=== PATIENT | female | born 1950 | race Caucasian/White ===

== ENCOUNTER → 2019-08-07 08:27 | Outpatient (BNVA) | payer MEDICARE, MEDICAID, SELFPAY | PROVIDERS: Family Provider Family Medicine; Referring Provider Family Medicine; Visit Provider Podiatrist Foot & Ankle Surgery | DX: M21.962 Unspecified acquired deformity of left lower leg (principal) | CPT/HCPCS: 73630 ==

== ENCOUNTER 2020-03-15 11:31 | Outpatient (CLI) | payer MEDICARE, MEDICAID, SELFPAY ==
--- NOTE | 2020-03-15 11:37 | MM_ITS ---
WS: [id number] BILATERAL SCREENING DIGITAL MAMMOGRAM WITH CAD HISTORY: SCREENING COMPARISON: 01/28/2019 and 12/31/2017 Bilateral CC and MLO views submitted. Computer aided detection analyzed. Breast composition: There are scattered areas of fibroglandular density. No suspicious masses, microc alcifications or architectural distortion. Bilateral vascular calcifications within each breast. MM/[id number] IMPRESSION: BI-RADS: 2-Benign FOLLOW UP: 1 Year Follow-up
== END 2020-03-15 11:32 | disposition home or self-care (01) ==
LOC: RADSHAW 11:34
PROVIDERS: Family Provider Family Medicine; PCP Family Medicine; Visit Provider Family Medicine
DX: Z12.31 Encounter for screening mammogram for malignant neoplasm of breast (principal)
CPT/HCPCS: 77067

== ENCOUNTER 2021-08-22 11:12 | Outpatient (CLI) | payer MEDICARE, MEDICAID, SELFPAY ==
--- NOTE | 2021-08-22 11:22 | MM_ITS ---
WS: [id number] BILATERAL SCREENING DIGITAL BREAST TOMOSYNTHESIS MAMMOGRAM WITH CAD HISTORY: SCREENING COMPARISON: 03/15/2020, 01/28/2019 and 12/08/2016 Bilateral CC and MLO views with tomosynthesis and synthetic mammography submitted. Computer aided det ection analyzed. Breast composition: There are scattered areas of fibroglandular density. No suspicious masses, microc alcifications or architectural distortion. Stable nodule LEFT breast near 3:00. MM/[id number] IMPRESSION: BI-RADS: 2-Benign FOLLOW UP: 1 Year Follow-up
== END 2021-08-22 11:13 | disposition home or self-care (01) ==
LOC: RAD 11:18
PROVIDERS: Family Provider Family Medicine; PCP Family Medicine; Visit Provider Family Medicine
DX: Z12.31 Encounter for screening mammogram for malignant neoplasm of breast (principal)
CPT/HCPCS: 77063; 77067

== ENCOUNTER 2022-02-01 10:01 | Emergency (ER) | payer MEDICARE, MEDICAID, SELFPAY ==
[2022-02-01 10:10] VITALS: BP 164/87; PULSE 62; RESP 16; TEMP 36.9; O2SAT 98; BMI 29.0
[2022-02-01 10:30] VITALS: BP 158/80; PULSE 59; RESP 16; TEMP 36.7; O2SAT 94
--- NOTE | 2022-02-01 10:36 | ED_ITS ---
Documented by User: LAURO Del Toro 02/01/22 15:08 HPI - Recheck/Abnormal Lab/Rx General: Chief Complaint: Recheck/Abnormal Lab/Rx Stated Complaint: abnormal labs yesterday Time Seen by Provider: 02/01/22 10:21 History of Present Illness: Patient is a 71-year-old female comes to the ED to have labs rechecked. Patient received a call from her primary care doctor today and was told that her platelets were low and her creatinine was elevated. PCP told her to come to the ED to get her labs rechecked and for her to be evaluated. Patient says she is not having any symptoms currently and feels normal. Denies any current bleeding, fevers, chills, chest pain, shortness of breath, abdominal pain, nausea/vomiting, dizziness, bladder or bowel symptoms. Denies any history of any platelet disorder she has a past medical history of diabetes, hypertension, hypothyroidism and osteoporosis. History of some chronic kidney disease. Patient was just started on Invokana within the past year. The patient showed me her labs from 2 days ago and the results showed platelet count of 21,000 and a creatinine level of 1.4. Review of Systems Const: Denies: fever(s), chills or fatigue Eyes: Denies: change in vision or eye discomfort ENMT: Denies: throat pain, odynophagia, nasal discharge or nasal congestion Card: Denies: chest pain, palpitations, edema, swelling of feet/ankles, dyspnea on exertion or orthopnea Resp: Denies: dyspnea, productive cough or non-productive cough GI: Denies: abdominal pain, nausea, vomiting, diarrhea, constipation or hematochezia : Denies: flank pain, dysuria or hematuria Musc: Denies: neck pain, back pain or extremity swelling Skin/Breast: Denies: rash or new lesions Neuro: Denies: headache(s), numbness in extremities or weakness in extremities PFSH ED PFSH: Medical History (Updated 02/09/22 @ 00:00 by ) Chronic kidney disease History of stroke (11/2020) Affecting left eye Hypertension Hypothyroidism Systemic lupus Type 2 diabetes mellitus Surgical History (Updated 02/08/22 @ 12:44 by Artie Mars MD) History of cholecystectomy Status post ORIF of fracture of ankle Right ankle Family History (Updated 02/08/22 @ 12:47 by Artie Mars MD) Brother Diabetes Brother Cancer Social History Smoking and tobacco status: never smoked Household members: none Current occupational status: retired Physical Exam Const: COMMON NORMALS: no acute distress, patient oriented x3 and alert GENERAL APPEARANCE: cooperative and comfortable HENMT: COMMON NORMALS: normocephalic HEAD & SCALP: normocephalic MOUTH: Normal oral and palatal mucosa present THROAT: posterior oropharynx normal and uvula midline Neck/C-Spine: COMMON NORMALS: supple GENERAL: Yes normal visual inspection Resp: COMMON NORMALS: normal respiratory effort, No retractions, No use of accessory muscles and clear to auscultation bilaterally AUSCULTATION: clear to auscultation bilaterally Cardio: COMMON NORMALS: regular rate, regular rhythm, S1 normal heart sound present, S2 normal heart sound present, No gallops present (Cardio), No clicks present (Cardio), No murmurs present (Cardio) and Peripheral pulses 2+ throughout RATE: regular rate RHYTHM: regular rhythm HEART SOUNDS: S1 normal heart sound present and S2 normal heart sound present PERIPHERAL PULSES: Peripheral pulses 2+ throughout GI: COMMON NORMALS: Normal to inspection, nondistended, normoactive bowel sounds present, Soft to palpation, non-tender and no masses PALPATION: Yes Soft to palpation : COMMON NORMALS: Yes no CVA tenderness BLADDER/KIDNEY EXAM: Yes no CVA tenderness Back/Pelvis: COMMON NORMALS: no CVA tenderness Extremity: COMMON NORMALS: normal to inspection Neuro: COMMON NORMALS: patient oriented x3 SENSORIUM/ORIENTATION: Yes alert GAIT: Yes Normal gait present Skin: GENERAL SKIN EXAM: dry skin Course Vital Signs: Vital signs: Vital Signs Temperature 98.0 F 02/01/22 10:30 Pulse Rate 53 L 02/01/22 12:33 Respiratory Rate 14 02/01/22 12:33 Blood Pressure 166/82 02/01/22 12:33 Pulse Oximetry 96 02/01/22 12:33 Oxygen Delivery Me thod 02/01/22 12:33 MDM - Recheck/Abnormal Lab/Rx Medical Decision Making Patient is a 71-year-old female comes to the ED to have labs rechecked. Patient received a call from her primary care doctor today and was told that her platelets were low and her creatinine was elevated. PCP told her to come to the ED to get her labs rechecked and for her to be evaluated. Patient says she is not having any symptoms currently and feels normal. Denies any current bleeding, fevers, chills, chest pain, shortness of breath, abdominal pain, nausea/vomiting, dizziness, bladder or bowel symptoms. Endorses having a history of chronic kidney disease. patient showed me her labs from 2 days ago and her creatinine was 1.4. Platelets were 21,000. Vitals are stable. Patient appears nontoxic and in no acute distress or pain. Rest of exam is benign. Today her platelet count is 31,000 and creatinine is 1.6. She was given half a liter of IV fluids. She was stable for discharge home diagnosed with thrombocytopenia and elevated serum creatinine. I placed an order with case management for patient be referred to business operations consultant for follow-up on thro mbocytopenia. Strict return to ED precautions given. Follow-up with PCP within the next 2 to 3 days to have labs rechecked. Return ED precautions given. Patient understood and agreed with plan. I reviewed case with Dr. Andrade he agreed with plan. Medical Records The patient showed me her labs from 2 days ago and the results showed platelet count of 21,000 and a creatinine level of 1.4. Lab Data I reviewed the patient's lab results. 02/01/22 10:30 02/01/22 10:30 Laboratory Results WBC 5.2 10^3/uL (4.0-10.0) 02/01/22 10:30 RBC 4.72 10^6/uL (4.1-5.3) 02/01/22 10:30 Hgb 13.3 g/dL (11.5-15.3) 02/01/22 10:30 Hct 41.3 % (37.0-47.0) 02/01/22 10:30 MCV 87.5 fl (81-99) 02/01/22 10:30 MCH 28.2 pg (28.0-34.0) 02/01/22 10:30 MCHC 32.2 g/dL (30.0-36.0) 02/01/22 10:30 RDW 13.5 % (12.1-15.1) 02/01/22 10:30 Plt Count 31 10^3/cmm (130-400) L 02/01/22 10:30 MPV 11.8 fL (7.4-10.4) H 02/01/22 10:30 Neut % (Auto) 54.0 % 02/01/22 10:30 Lymph % (Auto) 35.8 % 02/01/22 10:30 Darke % (Auto) 8.1 % 02/01/22 10:30 Eos % (Auto) 1.7 % 02/01/22 10:30 Baso % (Auto) 0.2 % 02/01/22 10:30 Neut # (Auto) 2.79 10^3/uL (1.8-7.7) 02/01/22 10:30 Lymph # (Auto) 1.9 10^3/uL (0.8-4.8) 02/01/22 10:30 Darke # (Auto) 0.4 10^3/uL (0.2-0.9) 02/01/22 10:30 Eos # (Auto) 0.1 10^3/uL (0.0-0.8) 02/01/22 10:30 Baso # (Auto) 0.0 10^3/uL (0.0-0.1) 02/01/22 10:30 Nucleated RBC % (auto) 0 % 02/01/22 10:30 Nucleated RBCs # 0.0 /100WBC 02/01/22 10:30 PT 13.60 SECONDS (12.1-14.9) 02/01/22 10:30 INR 1.01 (0.8-1.2) 02/01/22 10:30 APTT 33.0 SECONDS (23.9-36.7) 02/01/22 10:30 Fibrinogen 363 mg/dL (174-498) 02/01/22 10:30 Sodium 139 mmol/L (136-145) 02/01/22 10:30 Potassium 4.3 mmol/L (3.5-5.1) 02/01/22 10:30 Chloride 104 mmol/L (98-107) 02/01/22 10:30 Carbon Dioxide 23 mmol/L (22-29) 02/01/22 10:30 Anion Gap 16.3 (5-19) 02/01/22 10:30 BUN 36 mg/dL (8-23) H 02/01/22 10:30 Creatinine 1.6 mg/dL (0.5-0.9) H 02/01/22 10:30 GFR Calculation Not Reportable 02/01/22 10:30 Glucose 300 mg/dL (65-115) H 02/01/22 10:30 Calculated Osmolality 308 mOsm/kg (285-295) H 02/01/22 10:30 Calcium 8.6 mg/dL (8.5-10.5) 02/01/22 10:30 Total Bilirubin 0.2 mg/dL (0.15-1.2) 02/01/22 10:30 AST 17 U/L (0-32) 02/01/22 10:30 ALT 11 U/L (0-33) 02/01/22 10:30 Alkaline Phosphatase 104 U/L (35-105) 02/01/22 10:30 Total Protein 7.1 g/dL (6.6-8.7) 02/01/22 10:30 Albumin 3.7 g/dL (3.5-5.2) 02/01/22 10:30 Globulin 3.4 g/dL (1.3-4.6) 02/01/22 10:30 Urine Color Yellow (Yellow) 02/01/22 10:10 Urine Appearance Clear (CLEAR) 02/01/22 10:10 Urine pH 5 (5-7) 02/01/22 10:10 Ur Specific [facility] 1.015 (1.005-1.030) 02/01/22 10:10 Urine Protein Trace (Negative) 02/01/22 10:10 Urine Glucose (UA) 4+ (Normal) H 02/01/22 10:10 Urine Ketones Negative (Negative) 02/01/22 10:10 Urine Blood Neg (Negative) 02/01/22 10:10 Urine Nitrate Negative (Negative) 02/01/22 10:10 Urine Bilirubin Neg (Negative) 02/01/22 10:10 Urine Urobilinogen Neg mg/dL (Negative) 02/01/22 10:10 Ur Leukocyte Esterase Negative (Negative) 02/01/22 10:10 Urine RBC Rare /hpf (0-2) 02/01/22 10:10 Urine WBC None /hpf (0-5) 02/01/22 10:10 Ur Squamous Epith Cells 0-4 /hpf (0-5) H 02/01/22 10:10 Amorphous Sediment Not Reportable 02/01/22 10:10 Urine Bacteria None /hpf (NONE) 02/01/22 10:10 Discharge Plan Discharge Patient Disposition: Home Clinical Impression: Thrombocytopenia, Elevated serum creatinine Condition: Stable Prescriptions: No Action (DME) Diabetic Shoes See Rx Instructions .ROUTE .MEDSUPPLY Qty: 1 0RF Rx Instructions: As directed losartan 50 mg tablet 50 mg PO DAILY clonidine HCl 0.1 mg tablet 0.1 mg PO DAILY levothyroxine 75 mcg tablet 75 mcg PO DAILY Claritin 10 mg Tablet 10 mg PO QPM PRN (Reason: Allergy Symptoms) Invokana 100 mg tablet 100 mg PO DAILY Discharge Orders: Discharge ED (Routine); Ordered 02/01/22 Ordered By: Jelani Iqbal Referrals: Aspen Hopkins MD [Primary Care Provider] - Discharge Diet: Regular Discharge Activity: Increase activity as tolerated Patient Instructions: Thrombocytopenia (ED) Activity Restrictions/Additional Instructions: Follow-up with medical provider as directed in the next 2 to 3 days to be reevaluated and to have platelet levels checked again and to also check creatinine level. Case management should be contacting you in the next several days to set up an appointment with business operations consultant to evaluate your low platelet count. Contact your kidney doctor to discuss your low platelet count and the recently started medication of Invokana. Continue taking all home medications as previously prescribed. Return to the ER or your medical provider if condition worsens or if you have any uncontrolled bleeding. Please read and understand discharge instructions. Thank you for choosing [facility] for your healthcare needs today. Please realize this is an emergency room and that we are providing you with a medical screening exam and this may not be complete and all inclusive of all the testing and or work up that you may need to determine your ailment or severity of your illness. It is very important that you follow up as instructed or that you return to the Emergency Department should you have concerns or if your cond ition changes or worsens in any way. Coding Level of Care Code ED Physician Practice Consultant for Chg Fwd Exam Comprehensive Documented by User: Narciso Andrade MD 02/15/22 00:59 HPI - Recheck/Abnormal Lab/Rx General: Chief Complaint: Recheck/Abnormal Lab/Rx Stated Complaint: abnormal labs yesterday Time Seen by Provider: 02/01/22 10:21 PFSH ED PFSH: Medical History (Updated 02/09/22 @ 00:00 by ) Chronic kidney disease History of stroke (11/2020) Affecting left eye Hypertension Hypothyroidism Systemic lupus Type 2 diabetes mellitus Surgical History (Updated 02/08/22 @ 12:44 by Artei Mars MD) History of cholecystectomy Status post ORIF of fracture of ankle Right ankle Family History (Updated 02/08/22 @ 12:47 by Artie Mars MD) Brother Diabetes Brother Cancer Social History Smoking and tobacco status: never smoked Household members: none Current occupational status: retired Course Vital Signs: Vital signs: Vital Signs Temperature 98.0 F 02/01/22 10:30 Pulse Rate 53 L 02/01/22 12:33 Respiratory Rate 14 02/01/22 12:33 Blood Pressure 166/82 02/01/22 12:33 Pulse Oximetry 96 02/01/22 12:33 Oxygen Delivery Me thod 02/01/22 12:33 MDM - Recheck/Abnormal Lab/Rx Medical Decision Making Patient is a 71-year-old female comes to the ED to have labs rechecked. Patient received a call from her primary care doctor today and was told that her platelets were low and her creatinine was elevated. PCP told her to come to the ED to get her labs rechecked and for her to be evaluated. Patient says she is not having any symptoms currently and feels normal. Denies any current bleeding, fevers, chills, chest pain, shortness of breath, abdominal pain, nausea/vomiting, dizziness, bladder or bowel symptoms. Endorses having a history of chronic kidney disease. patient showed me her labs from 2 days ago and her creatinine was 1.4. Platelets were 21,000. Vitals are stable. Patient appears nontoxic and in no acute distress or pain. Rest of exam is benign. Today her platelet count is 31,000 and creatinine is 1.6. She was given half a liter of IV fluids. She was stable for discharge home diagnosed with thro mbocytopenia and elevated serum creatinine. I placed an order with case management for patient be referred to business operations consultant for follow-up on thrombocytopenia. Strict return to ED precautions given. Follow-up with PCP within the next 2 to 3 days to have labs rechecked. Return ED precautions given. Patient understood and agreed with plan. I reviewed case with Dr. Andrade he agreed with plan. I discussed this case with LAURO Del Toro. I have reviewed documentation. Narciso Andrade MD Emergency Medicine Lab Data 02/01/22 10:30 02/01/22 10:30 Laboratory Results WBC 5.2 10^3/uL (4.0-10.0) 02/01/22 10:30 RBC 4.72 10^6/uL (4.1-5.3) 02/01/22 10:30 Hgb 13.3 g/dL (11.5-15.3) 02/01/22 10:30 Hct 41.3 % (37.0-47.0) 02/01/22 10:30 MCV 87.5 fl (81-99) 02/01/22 10:30 MCH 28.2 pg (28.0-34.0) 02/01/22 10:30 MCHC 32.2 g/dL (30.0-36.0) 02/01/22 10:30 RDW 13.5 % (12.1-15.1) 02/01/22 10:30 Plt Count 31 10^3/cmm (130-400) L 02/01/22 10:30 MPV 11.8 fL (7.4-10.4) H 02/01/22 10:30 Neut % (Auto) 54.0 % 02/01/22 10:30 Lymph % (Auto) 35.8 % 02/01/22 10:30 Darke % (Auto) 8.1 % 02/01/22 10:30 Eos % (Auto) 1.7 % 02/01/22 10:30 Baso % (Auto) 0.2 % 02/01/22 10:30 Neut # (Auto) 2.79 10^3/uL (1.8-7.7) 02/01/22 10:30 Lymph # (Auto) 1.9 10^3/uL (0.8-4.8) 02/01/22 10:30 Darke # (Auto) 0.4 10^3/uL (0.2-0.9) 02/01/22 10:30 Eos # (Auto) 0.1 10^3/uL (0.0-0.8) 02/01/22 10:30 Baso # (Auto) 0.0 10^3/uL (0.0-0.1) 02/01/22 10:30 Nucleated RBC % (auto) 0 % 02/01/22 10:30 Nucleated RBCs # 0.0 /100WBC 02/01/22 10:30 PT 13.60 SECONDS (12.1-14.9) 02/01/22 10:30 INR 1.01 (0.8-1.2) 02/01/22 10:30 APTT 33.0 SECONDS (23.9-36.7) 02/01/22 10:30 Fibrinogen 363 mg/dL (174-498) 02/01/22 10:30 Sodium 139 mmol/L (136-145) 02/01/22 10:30 Potassium 4.3 mmol/L (3.5-5.1) 02/01/22 10:30 Chloride 104 mmol/L (98-107) 02/01/22 10:30 Carbon Dioxide 23 mmol/L (22-29) 02/01/22 10:30 Anion Gap 16.3 (5-19) 02/01/22 10:30 BUN 36 mg/dL (8-23) H 02/01/22 10:30 Creatinine 1.6 mg/dL (0.5-0.9) H 02/01/22 10:30 GFR Calculation Not Reportable 02/01/22 10:30 Glucose 300 mg/dL (65-115) H 02/01/22 10:30 Calculated Osmolality 308 mOsm/kg (285-295) H 02/01/22 10:30 Calcium 8.6 mg/dL (8.5-10.5) 02/01/22 10:30 Total Bilirubin 0.2 mg/dL (0.15-1.2) 02/01/22 10:30 AST 17 U/L (0-32) 02/01/22 10:30 ALT 11 U/L (0-33) 02/01/22 10:30 Alkaline Phosphatase 104 U/L (35-105) 02/01/22 10:30 Total Protein 7.1 g/dL (6.6-8.7) 02/01/22 10:30 Albumin 3.7 g/dL (3.5-5.2) 02/01/22 10:30 Globulin 3.4 g/dL (1.3-4.6) 02/01/22 10:30 Urine Color Yellow (Yellow) 02/01/22 10:10 Urine Appearance Clear (CLEAR) 02/01/22 10:10 Urine pH 5 (5-7) 02/01/22 10:10 Ur Specific [facility] 1.015 (1.005-1.030) 02/01/22 10:10 Urine Protein Trace (Negative) 02/01/22 10:10 Urine Glucose (UA) 4+ (Normal) H 02/01/22 10:10 Urine Ketones Negative (Negative) 02/01/22 10:10 Urine Blood Neg (Negative) 02/01/22 10:10 Urine Nitrate Negative (Negative) 02/01/22 10:10 Urine Bilirubin Neg (Negative) 02/01/22 10:10 Urine Urobilinogen Neg mg/dL (Negative) 02/01/22 10:10 Ur Leukocyte Esterase Negative (Negative) 02/01/22 10:10 Urine RBC Rare /hpf (0-2) 02/01/22 10:10 Urine WBC None /hpf (0-5) 02/01/22 10:10 Ur Squamous Epith Cells 0-4 /hpf (0-5) H 02/01/22 10:10 Amorphous Sediment Not Reportable 02/01/22 10:10 Urine Bacteria None /hpf (NONE) 02/01/22 10:10 Discharge Plan Discharge Patient Disposition: Home Clinical Impression: Thrombocytopenia, Elevated serum creatinine Condition: Stable Prescriptions: No Action (DME) Diabetic Shoes See Rx Instructions .ROUTE .MEDSUPPLY Qty: 1 0RF Rx Instructions: As directed losartan 50 mg tablet 50 mg PO DAILY clonidine HCl 0.1 mg tablet 0.1 mg PO DAILY levothyroxine 75 mcg tablet 75 mcg PO DAILY Claritin 10 mg Tablet 10 mg PO QPM PRN (Reason: Allergy Symptoms) Invokana 100 mg tablet 100 mg PO DAILY Discharge Orders: Discharge ED (Routine); Ordered 02/01/22 Ordered By: Jelani Iqbal Referrals: Aspen Hopkins MD [Primary Care Provider] - Discharge Diet: Regular Discharge Activity: Increase activity as tolerated Patient Instructions: Thrombocytopenia (ED) Activity Restrictions/Additional Instructions: Follow-up with medical provider as directed in the next 2 to 3 days to be reevaluated and to have platelet levels checked again and to also check creatinine level. Case management should be contacting you in the next several days to set up an appointment with business operations consultant to evaluate your low platelet count. Contact your kidney doctor to discuss your low platelet count and the recently started medication of Invokana. Continue taking all home medications as previously prescribed. Return to the ER or your medical provider if condition worsens or if you have any uncontrolled bleeding. Please read and understand discharge instructions. Thank you for choosing [facility] for your healthcare needs today. Please realize this is an emergency room and that we are providing you with a medical screening exam and this may not be complete and all inclusive of all the testing and or work up that you may need to determine your ailment or severity of your illness. It is very important that you follow up as instructed or that you return to the Emergency Department should you have concerns or if your condition changes or worsens in any way. Coding Level of Care Code ED Physician Practice Consultant for Isidoro Kim Exam Comprehensive
[2022-02-01 10:41] LABS: Basophils % 0.2 %; Eosinophils # 0.1 10^3/uL (0.0-0.8); Eosinophils % 1.7 %; Hematocrit 41.3 % (37.0-47.0); Hemoglobin 13.3 g/dL (11.5-15.3); Lymphocytes # 1.9 10^3/uL (0.8-4.8); Lymphocytes % 35.8 %; Mean Corpuscular HGB Conc 32.2 g/dL (30.0-36.0); Mean Corpuscular Hemoglobin 28.2 pg (28.0-34.0); Mean Corpuscular Volume 87.5 fl (81-99); Mean Platelet Volume 11.8 fL (7.4-10.4); Monocytes # 0.4 10^3/uL (0.2-0.9); Monocytes % 8.1 %; Neutrophils # 2.79 10^3/uL (1.8-7.7); Nucleated Red Blood Cells % 0 %; Platelet Count 31 10^3/cmm (130-400); Red Blood Count 4.72 10^6/uL (4.1-5.3); Red Cell Distribution Width 13.5 % (12.1-15.1); White Blood Count 5.2 10^3/uL (4.0-10.0)
[2022-02-01 10:43] LABS: Add Urine Microscopic? YES; Bilirubin Urine Neg (Negative); Blood Urine Neg (Negative); Glucose Urine UA 4+ (Normal); Ketones Urine Negative (Negative); Leukocyte Esterase Urine Negative (Negative); Nitrate Urine Negative (Negative); Protein Urine Trace (Negative); RBC Urine RARE /hpf (0-2); Specific Gravity, Urine 1.015 (1.005-1.030); Squamous Epithelial Cell Urine 0-4 /hpf (0-5); Urine Appearance Clear (CLEAR); Urine Color Yellow (Yellow); Urobilinogen Urine Neg (Negative); pH Urine 5 (5-7)
[2022-02-01 10:44] LABS: Add Urine Culture? No
[2022-02-01] MEDS: sodium chloride 0.9% 500 ML 999 ML IV (10:50)
[2022-02-01 11:00] LABS: Alanine Aminotransferase 11 U/L (0-33); Albumin Level 3.7 g/dL (3.5-5.2); Alkaline Phosphatase 104 U/L (35-105); Anion Gap 16.3 (5-19); Aspartate Amino Transferase 17 U/L (0-32); Blood Urea Nitrogen 36 mg/dL (8-23); Calcium 8.6 mg/dL (8.5-10.5); Carbon Dioxide 23 mmol/L (22-29); Chloride 104 mmol/L (98-107); Globulin 3.4 g/dL (1.3-4.6); Glucose 300 mg/dL (65-115); Osmolality Calculated 308 mOsm/kg (285-295); Potassium 4.3 mmol/L (3.5-5.1); Sodium 139 mmol/L (136-145); Total Bilirubin 0.2 mg/dL (0.15-1.2); Total Protein 7.1 g/dL (6.6-8.7)
[2022-02-01 11:51] LABS: INR 1.01 (0.8-1.2)
[2022-02-01 11:53] LABS: Fibrinogen 363 mg/dL (174-498)
[2022-02-01 12:19] LABS: LAB Peripheral Smear Sent for Review
[2022-02-01 12:33] VITALS: BP 166/82; PULSE 53; RESP 14; O2SAT 96
--- NOTE | 2022-02-02 09:38 | PC.SOCIAL ---
Addendum entered by Milena Burroughs 03/08/22 12:57: Patient had a follow up appointment scheduled with Dr. Mars - patient did attend appointment. Original Note: Reference Test Clerk Referral Consult to refer to hematology. Scheduled with Dr. Mars on February 08 at 0800. Called patient to update her; unable to reach. Voicemail left.
== END 2022-02-01 13:02 | disposition home or self-care (01) ==
PROVIDERS: Emergency Medicine; Family Medicine; Emergency Provider Physician Assistant; PCP Family Medicine
DX: D69.6 Thrombocytopenia, unspecified (principal); R74.8 Abnormal levels of other serum enzymes; Z79.84 Long term (current) use of oral hypoglycemic drugs; E11.9 Type 2 diabetes mellitus without complications; I10 Essential (primary) hypertension; M32.9 Systemic lupus erythematosus, unspecified
CPT/HCPCS: 80053; 81001; 85025; 85384; 85610; 85730; 96360; 99284; J7040

== ENCOUNTER 2022-02-08 07:52 | Oncology outpatient (recurring) (ONCR) | payer MEDICARE, MEDICAID, SELFPAY ==
[2022-02-08 09:09] LABS: Basophils % 0.2 %; Eosinophils # 0.1 10^3/uL (0.0-0.8); Eosinophils % 1.2 %; Hematocrit 40.7 % (37.0-47.0); Hemoglobin 13.1 g/dL (11.5-15.3); Lymphocytes # 1.6 10^3/uL (0.8-4.8); Lymphocytes % 23.9 %; Mean Corpuscular HGB Conc 32.2 g/dL (30.0-36.0); Mean Corpuscular Hemoglobin 28.3 pg (28.0-34.0); Mean Corpuscular Volume 87.9 fl (81-99); Mean Platelet Volume 10.4 fL (7.4-10.4); Monocytes # 0.4 10^3/uL (0.2-0.9); Monocytes % 6.3 %; Neutrophils # 4.54 10^3/uL (1.8-7.7); Neutrophils % 68.1 %; Nucleated Red Blood Cells % 0 %; Platelet Count 124 10^3/cmm (130-400); Red Blood Count 4.63 10^6/uL (4.1-5.3); Red Cell Distribution Width 13.7 % (12.1-15.1); White Blood Count 6.7 10^3/uL (4.0-10.0)
[2022-02-08 09:11] LABS: Erythrocyte Sedimentation Rate 9 mm/hr (0-15)
[2022-02-08 09:21] LABS: Alanine Aminotransferase 12 U/L (0-33); Albumin Level 3.3 g/dL (3.5-5.2); Alkaline Phosphatase 100 U/L (35-105); Anion Gap 13.6 (5-19); Aspartate Amino Transferase 18 U/L (0-32); Blood Urea Nitrogen 31 mg/dL (8-23); Calcium 8.9 mg/dL (8.5-10.5); Carbon Dioxide 22 mmol/L (22-29); Chloride 105 mmol/L (98-107); Globulin 3.4 g/dL (1.3-4.6); Glucose 184 mg/dL (65-115); Osmolality Calculated 293 mOsm/kg (285-295); Potassium 4.6 mmol/L (3.5-5.1); Sodium 136 mmol/L (136-145); Total Bilirubin 0.2 mg/dL (0.15-1.2); Total Protein 6.7 g/dL (6.6-8.7)
[2022-02-08 09:36] LABS: Vitamin B12 695 pg/mL (232-1245)
[2022-02-08 09:38] LABS: Lactate Dehydrogenase 190 U/L (135-214)
[2022-02-08 09:48] LABS: LAB Peripheral Smear Sent for Review
[2022-02-12 14:07] LABS: Anti-Nuclear Antibody Screen POSITIVE (NEGATIVE); Anti-Nuclear Antibody Titer 1:40 titer
== END 2022-02-15 23:59 | disposition home or self-care (01) ==
PROVIDERS: PCP Family Medicine; Visit Provider Internal Medicine Medical Oncology
DX: D69.6 Thrombocytopenia, unspecified (principal); D69.1 Qualitative platelet defects
CPT/HCPCS: 36415; 80053; 82607; 83010; 83615; 85025; 85651; 86038; 99204; 99205

== ENCOUNTER 2022-02-23 12:51 | Outpatient (CLI) | payer MEDICARE, MEDICAID, SELFPAY ==
--- NOTE | 2022-02-23 12:56 | XR_ITS ---
WS: [id number] DEXA (DUAL ENERGY X-RAY ABSORPTIOMETRY) Bone mineral density was performed using a Lyxia machine. HISTORY: ASYMPTOMATIC MENOPAUSAL STATE COMPARISON: 06/24/2018 Lumbar spine BMD (L1-L4): 1.013 g/cm2 T score: -1.4 Z score: 0.2 Total hip BMD: Left: 0.899 g/cm2. T score: -0.9 Z score: 0.7 Right: 0.895 g/cm2. T score: -0.9 Z score: 0.6 10 year probability of a major osteoporotic fracture is 19.3%. Compared to the prior study from 06/24/2018. Lumbar spine bone mineral density has decreased by 4.0%. Bilateral hips bone mineral density has decreased by 5.3%. XR/XR DEXA axial skeleton* [id number] IMPRESSION: OSTEOPENIA based upon the WHO classification for females. Significant decrease in bone mineral density within the lumbar spine and hips s christa the prior study.
== END 2022-02-23 12:52 | disposition home or self-care (01) ==
LOC: RAD 12:51
PROVIDERS: PCP Family Medicine; Visit Provider Family Medicine
DX: Z78.0 Asymptomatic menopausal state (principal); M85.80 Other specified disorders of bone density and structure, unspecified site
CPT/HCPCS: 77080

== ENCOUNTER → 2022-07-25 10:38 | Outpatient (BNVA) | payer MEDICARE, MEDICAID, SELFPAY | PROVIDERS: PCP Family Medicine; Visit Provider Podiatrist Foot & Ankle Surgery | DX: E11.42 Type 2 diabetes mellitus with diabetic polyneuropathy (principal); L84 Corns and callosities | CPT/HCPCS: 11055; 99204 ==

== ENCOUNTER 2022-09-01 12:57 | Outpatient (CLI) | payer MEDICARE, MEDICAID, SELFPAY ==
--- NOTE | 2022-09-01 13:10 | MM_ITS ---
WS: [id number] BILATERAL 3D TOMOSYNTHESIS DIGITAL SCREENING MAMMOGRAPHY WITH CAD CLINICAL INFORMATION: SCREENING HISTORY: Screening mammogram. No current complaints. COMPARISON: 2021 TECHNIQUE: Bilateral CC and MLO views. FINDINGS: Scattered fibroglandular densities bilaterally. No suspicious focal mass, asymmetry, calcifications, or architectural distortion. No evidence of malignancy. Vascular calcification. MM/[id number] IMPRESSION: BI-RADS: 2-Benign FOLLOW UP: 1 Year Follow-up Recommend return to annual screening mammography.
== END 2022-09-01 12:58 | disposition home or self-care (01) ==
PROVIDERS: PCP Family Medicine; Visit Provider Family Medicine
DX: Z12.31 Encounter for screening mammogram for malignant neoplasm of breast (principal)
CPT/HCPCS: 77063; 77067

== ENCOUNTER → 2022-10-17 11:02 | Outpatient (BNVA) | payer MEDICARE, MEDICAID, SELFPAY | PROVIDERS: PCP Family Medicine; Visit Provider Podiatrist Foot & Ankle Surgery | DX: L84 Corns and callosities (principal); E11.42 Type 2 diabetes mellitus with diabetic polyneuropathy; M20.41 Other hammer toe(s) (acquired), right foot; M20.42 Other hammer toe(s) (acquired), left foot | CPT/HCPCS: 99213 ==

== ENCOUNTER 2023-09-03 10:00 | Outpatient (CLI) | payer MEDICARE, MEDICAID, SELFPAY ==
--- NOTE | 2023-09-03 10:20 | MM_ITS ---
WS: [id number] BILATERAL SCREENING DIGITAL TOMOSYNTHESIS MAMMOGRAM WITH CAD HISTORY: SCREENING COMPARISON: 09/01/2022, 08/22/2021 and 12/08/2016 Bilateral CC and MLO views with tomosynthesis and synthetic mammography submitted. Computer aided det ection analyzed. Breast composition: There are scattered areas of fibroglandular density. No suspicious masses, microc alcifications or architectural distortion. Breast arterial calcifications. MM/[place] [id number] IMPRESSION: BI-RADS: 2-Benign FOLLOW UP: 1 Year Follow-up
== END 2023-09-03 10:01 | disposition home or self-care (01) ==
LOC: RAD 10:04
PROVIDERS: PCP Family Medicine; Visit Provider Family Medicine
DX: Z12.31 Encounter for screening mammogram for malignant neoplasm of breast (principal); R92.323 Mammographic fibroglandular density, bilateral breasts; R92.1 Mammographic calcification found on diagnostic imaging of breast
CPT/HCPCS: 77063; 77067

== ENCOUNTER 2024-09-10 09:59 | Outpatient (CLI) | payer MEDICARE, MEDICAID, SELFPAY ==
--- NOTE | 2024-09-10 10:02 | MM_ITS ---
WS: [id number] BILATERAL 3D TOMOSYNTHESIS DIGITAL SCREENING MAMMOGRAPHY WITH CAD CLINICAL INFORMATION: SCREEN HISTORY: Screening mammogram. No current complaints. COMPARISON: 2023 TECHNIQUE: Bilateral CC and MLO views. FINDINGS: Scattered fibroglandular densities bilaterally. No suspicious focal mass, asymmetry, calcifications, or architectural distortion. No evidence of malignancy. Vascular calcification. MM/MM scr tomosynthesis [id number] IMPRESSION: DENSITY: There are scattered areas of fibroglandular density. BI-RADS: 2 - Benign. FOLLOW UP: 1 Year Follow-up Recommend return to annual screening mammography.
== END 2024-09-10 10:00 | disposition home or self-care (01) ==
PROVIDERS: PCP Nurse Practitioner Family; Visit Provider Nurse Practitioner Family
DX: Z12.31 Encounter for screening mammogram for malignant neoplasm of breast (principal); R92.323 Mammographic fibroglandular density, bilateral breasts; R92.1 Mammographic calcification found on diagnostic imaging of breast
CPT/HCPCS: 77063; 77067